=== PATIENT | male | born 1955 | race Caucasian/White ===

== ENCOUNTER 2017-12-27 07:10 | Day surgery (SDC) | payer BC ==
[~2017-12-27] VITALS: Ht 180.3 cm; Wt 104.3 kg
--- NOTE | ~2017-12-27 | OP ---
PATIENT NAME: ANIYA PEREZ MEDICAL RECORD: [id number] :53 LOCATION:D.[facility] ADMISSION DATE: SURGEON: FABIANA YUN MD DATE OF OPERATION: 12/27/2017 PREOPERATIVE DIAGNOSIS: Perianal condylomata. PROCEDURE: Biopsy and fulguration of 3 anal condylomata. SURGEON: Fabiana Yun MD TURKEY FARMER: None. BLOOD LOSS: Minimal. ANESTHESIA: General. COMPLICATIONS: None. The risks, possible complications, and alternatives to the procedure were explained to the patient. He elects to proceed. OPERATIVE COURSE: The patient was conveyed to the operating room electively on 12/27/2017. General anesthesia was induced by the anesthesia staff. The patient was placed in the lithotomy position. The anus and perianal areas were sterilely prepped and draped. U-shaped anal retractors were placed. I examined the anus. I noted no rectal condylomata. No anal canal condylomata. There were perianal condyloma; however. There were approximately 13 condylomas. I biopsied several of the larger condylomas and then performed fulguration while area was being vacuumed through a filtration device. I fulgurated the condyloma until I could identify no condylomatous tissue any further. A combination of Marcaine and a steroid preparation were used to infiltrate the perianal tissues. A topical anesthetic cream was applied to the external hemorrhoids. Gelfoam was applied within the anus and lower rectum. The patient was then extubated and conveyed to post-anesthesia care unit where he was in stable condition. I will see him in the office in 2-3 weeks. TRANSINT:[id number] Voice Confirmation ID: [id number] DOCUMENT ID: [id number] FABIANA YUN MD at 1240 CC: CHONG KIM and QUETA MARRERO DO [id number] DICTATION DATE: 12/27/17 1133 CLAIMS EXAMINER: 12/27/17 1239 [facility] 12/27/17 [facility] [address] [place] [address]
[~2017-12-27 07:10] MED LIST: ARICEPT10 MG PO; BUSPAR5 MG PO; CLARITIN 10 MG10 MG PO; NEURONTIN 300300 MG PO; TIROSINT13 MCG PO; ULTRAM50 MG PO
[2017-12-27 08:30] VITALS: BP 126/72; Ht 180.3 cm; Wt 104.3 kg
== END 2017-12-27 13:22 | disposition home or self-care (01) ==
LOC: D.OPS 07:10 → D.PAN 09:40 → D.OPS 09:45 → D.PAN 09:45 → D.OPS 13:22
DX: A63.0 Anogenital (venereal) warts (principal); Z01.812 Encounter for preprocedural laboratory examination

== ENCOUNTER → 2020-08-31 08:46 | Outpatient (CLI) | payer MEDICARE ==
[2017-12-27 08:30] VITALS: BMI 32.1
--- NOTE | ~2020-08-31 | ST ---
PATIENT:ANIYA PEREZ MEDICAL RECORD: [id number] SEX: M LOCATION:[facility] ORDER #: ADMISSION DATE: 08/31/20 AGE OF PATIENT: 64 REFERRING PHYSICIAN: INTERPRETING PHYSICIAN: SINDHU BARRON MD DATE OF SERVICE: 08/31/2020 NUCLEAR STRESS TEST GATED: Normal. Normal wall motion. Normal wall thickening. Calculated EF 61%. SPECT IMAGING: SPECT imaging was performed. 1. Short axis view shows a fixed inferobasal defect with no significant reversibility. This is confirmed in horizontal axis with a fixed inferobasal defect with no significant reversibility. 2. Vertical axis: Vertical axis shows good uptake along the lateral wall and septum. FINAL IMPRESSION: 1. Normal gated, normal wall motion, ejection fraction 61%. 2. Abnormal SPECT imaging with fixed inferobasal defect with no significant reversibility. FINAL RECOMMENDATION: This is a stable scan with no ongoing active ischemia. LV function remains normal. Continue medical management. Risk factor modification is recommended. TRANSINT:[id number] Voice Confirmation ID: [id number] DOCUMENT ID: [id number] SINDHU BARRON MD CC: [id number] DICTATION DATE: 08/31/20 1631 RED CROSS WORKER: 09/01/20 0519 DEP CLI 08/31/20 [place] [id number] [place] [address]
== END | disposition home or self-care (01) ==
LOC: D.HCCECHO 08:46 → D.HCCARDIO 09:30
PROVIDERS: ATTEND Internal Medicine Interventional Cardiology
DX: R06.09 Other forms of dyspnea (principal); R06.02 Shortness of breath